=== PATIENT | male | born 1935 | race Caucasian/White ===

== ENCOUNTER 2017-09-14 12:54 | Emergency (ER) | payer OTHER ==
[~2017-09-14] VITALS: Ht 165.1 cm; Wt 57.0 kg
[~2017-09-14 12:54] MED LIST: PRIN10TA PO; UMEC1AER
[2017-09-14 13:01] VITALS: BP 133/74; PULSE 98; RESP 20; TEMP 98.6; O2SAT 94
--- NOTE | 2017-09-14 13:21 | PD ---
HPI Chief Complaint: Edema Time Seen by Provider: 13:06 Travel History International Travel<30 days: No Contact w/Intl Traveler<30days: No Traveled to known affect area: No History of Present Illness HPI PATIENT C/O BLE EDEMA WORSENING OVER THE LAST 2 WEEKS, DESPITE BEEN COMPLIANT WITH HIS LASIX. DR RAYO REQUESTED A CT RUNOFF? POSSIBLE AT [facility]. PATIENT STATED IT WAS DONE BECAUSE HE WAS HAVING PERSISTENT PAIN AND ALSO SORES TO RLE/FOOT AREA. PAIN 03/26, NONRAD, [place], PCP: DR KIRTI PETER VASCULAR SURGEON DR VIDYA RAYO PMHX: HTN, PAD (RECENTLY DIAGNOSED ABOUT A MONTH AGO...RIGHT FLOW WORSE THAN LEFT)...COPD PFSH Past Medical History Arthritis: Yes (left knee) Asthma: No Autoimmune Disease: No Blood Disorders: No Anxiety: No Depression: No Heart Rhythm Problems: No Cancer: No Cardiovascular Problems: No High Cholesterol: No Chemotherapy: No Chest Pain: No Congestive Heart Failure: No COPD: Yes (own nebulizers at home prn) Cerebrovascular Accident: No Diabetes: No Diminished Hearing: No Gastrointestinal Disorders: No GERD: No Glaucoma: No Headaches: No Hepatitis: No Hiatal Hernia: No Hypertension: Yes Kidney Stones: No Musculoskeletal: No Neurologic: No Psychiatric: No Reproductive: No Respiratory: Yes Myocardial Infarction: No Radiation Therapy: No Renal Failure: No Seizures: No Sickle Cell Disease: No Sleep Apnea: No Thyroid Disease: No Ulcer: Yes (perforated ulcer 13 years ago) PNEUMOCCOCAL Vaccine (Year): 1 Past Surgical History Abdominal Surgery: Yes (gastric repair from ruptured ulcer, hernia repair) AICD: No Cardiac Surgery: No Ear Surgery: No Endocrine Surgery: No Eye Surgery: No Genitourinary Surgery: No Gynecologic Surgery: No Neurologic Surgery: No Oral Surgery: No Pacemaker: No Thoracic Surgery: No Other Surgery: Yes Social History Alcohol Use: No Tobacco Use: No Substance Use: No Allergies-Medications (Allergen,Severity, Reaction): Coded Allergies: morphine (Verified Allergy, Unknown, 09/14/17) cat dander (Unverified Adverse Reaction, Intermediate, Itching, 09/14/17) Reported Meds & Prescriptions Reported Meds & Active Scripts Active Reported Anoro Ellipta Inh (Umeclidinium/Vilanterol) 62.5-25 Mcg/Act Aero 1 Puff INH DAILY Furosemide 20 Mg Tab 20 Mg PO BID Lisinopril 5 Mg Tab 5 Mg PO DAILY Review of Systems Except as stated in HPI: all other systems reviewed are Neg General / Constitutional: No: Fever Eyes: No: Visual changes HENT: No: Headaches Cardiovascular: Positive: Edema Respiratory: No: Shortness of Breath Gastrointestinal: No: Abdominal Pain Genitourinary: No: Dysuria Musculoskeletal: No: Pain Skin: No Rash Neurologic: No: Weakness Psychiatric: No: Depression Endocrine: No: Polydipsia Hematologic/Lymphatic: No: Easy Bruising Physical Exam Narrative GENERAL: SKIN: Warm and dry. HEAD: Atraumatic. Normocephalic. EYES: Pupils equal and round. No scleral icterus. No injection or drainage. ENT: No nasal bleeding or discharge. Mucous membranes pink and moist. NECK: Trachea midline. No JVD. CARDIOVASCULAR: Regular rate and rhythm. RESPIRATORY: No accessory muscle use. Clear to auscultation. Breath sounds equal bilaterally. GASTROINTESTINAL: Abdomen soft, non-tender, nondistended. MUSCULOSKELETAL: Extremities without clubbing, cyanosis, NO OBVIOUS DEFORMITY. BLE EDEMA, NONPALPABLE DPI, BUT DOPPLERABLE MONOPHASIC ON RT, LEFT TRIPHASIC NEUROLOGICAL: Awake and alert. No obvious cranial nerve deficits. Motor grossly within normal limits. Five out of 5 muscle strength in the arms and legs. Normal speech. PSYCHIATRIC: Appropriate mood and affect; insight and judgment normal. Data Data Last Documented VS Vital Signs Date Time Temp Pulse Resp B/P (MAP) Pulse Ox O2 Delivery O2 Flow Rate FiO2 09/14/17 13:36 16 97 Room Air 09/14/17 13:01 98.6 98 133/74 (93) Orders Orders Complete Blood Count With Diff (09/14/17 13:21) Comprehensive Metabolic Panel (09/14/17 13:21) Troponin I (09/14/17 13:21) B-Type Natriuretic Peptide (09/14/17 13:21) Prothrombin Time / Inr (Pt) (09/14/17 13:21) Act Partial Throm Time (Ptt) (09/14/17 13:21) Chest, Single Ap (09/14/17 13:21) Iv Access Insert/Monitor (09/14/17 13:21) Ecg Monitoring (09/14/17 13:21) Oximetry (09/14/17 13:21) Us Leg Venous Doppler Bilat (09/14/17 13:21) Morphine Inj (Morphine Inj) (09/14/17 14:00) Tramadol (Ultram) (09/14/17 14:30) Labs Laboratory Tests Test 09/14/17 13:45 White Blood Count 6.3 TH/MM3 Red Blood Count 3.43 MIL/MM3 Hemoglobin 10.9 GM/DL Hematocrit 33.6 % Mean Corpuscular Volume 98.0 FL Mean Corpuscular Hemoglobin 31.9 PG Mean Corpuscular Hemoglobin Concent 32.5 % Red Cell Distribution Width 13.6 % Platelet Count 160 TH/MM3 Mean Platelet Volume 9.0 FL Neutrophils (%) (Auto) 73.6 % Lymphocytes (%) (Auto) 11.9 % Monocytes (%) (Auto) 11.2 % Eosinophils (%) (Auto) 3.0 % Basophils (%) (Auto) 0.3 % Neutrophils # (Auto) 4.7 TH/MM3 Lymphocytes # (Auto) 0.7 TH/MM3 Monocytes # (Auto) 0.7 TH/MM3 Eosinophils # (Auto) 0.2 TH/MM3 Basophils # (Auto) 0.0 TH/MM3 CBC Comment DIFF FINAL Differential Comment Prothrombin Time 11.1 SEC Prothromb Time International Ratio 1.0 RATIO Activated Partial Thromboplast Time 28.5 SEC Blood Urea Nitrogen 20 MG/DL Creatinine 1.00 MG/DL Random Glucose 101 MG/DL Total Protein 6.6 GM/DL Albumin 3.3 GM/DL Calcium Level 8.3 MG/DL Alkaline Phosphatase 75 U/L Aspartate Amino Transf (AST/SGOT) 27 U/L Alanine Aminotransferase (ALT/SGPT) 29 U/L Total Bilirubin 0.5 MG/DL Sodium Level 139 MEQ/L Potassium Level 3.9 MEQ/L Chloride Level 102 MEQ/L Carbon Dioxide Level 31.0 MEQ/L Anion Gap 6 MEQ/L Estimat Glomerular Filtration Rate 72 ML/MIN Troponin I LESS THAN 0.02 NG/ML B-Type Natriuretic Peptide 17 PG/ML [facility] Medical Decision Making Medical Screen Exam Complete: Yes Emergency Medical Condition: Yes Medical Record Reviewed: Yes Differential Diagnosis PERIPHERAL EDEMA V CHF V KIDNEY FAILURE V DVT V PAD Narrative Course PER [employer], HAD LASHANDA AND ARTERIAL STUDIES ON AUG 15 C/W PAD...ALSO ULTRS R/O DVT DONE THAT SAME DAY NEG, REPEAT ULTRS TODAY ALSO NEG FOR DVT. Diagnosis Primary Impression: Bilateral lower extremity edema Patient Instructions: General Instructions, Leg Edema (ED) Additional Instructions: PLEASE KEEP YOUR APPOINTMENT WITH DR RAYO FOR FURTHER CARE OF YOUR ARTERIAL DISEASE TO YOUR LEGS (FAILURE TO DO SO MAY LEAD TO POSSIBLE AMPUTATION) TODAY YOU WERE NOT FOUND TO HAVE ANY BLOOD CLOTS IN YOUR VEIN. YOU WERE GIVEN A ONE TIME DIURETIC IN EMERGENCY TO HELP DECREASE SOME OF THE SWELLING. Disposition: 01 DISCHARGE HOME Condition: Stable Reuben Carreno MD Sep 14, 2017 13:21
[2017-09-14] MEDS ORDERED: UMEC1AER INH (13:34)
[2017-09-14] MEDS ORDERED: LISI-519 PO (13:34)
[2017-09-14] MEDS ORDERED: FURO20TA PO (13:34)
[2017-09-14 13:36] VITALS: RESP 16; O2SAT 97
[2017-09-14 13:57] LABS: AUTOMATED NEUTROPHIL # 4.7 TH/MM3 (1.8-7.7); BASOPHIL % 0.3 % (0.0-2.0); EOSINOPHIL # 0.2 TH/MM3 (0-0.4); HEMATOCRIT 33.6 % (39.0-51.0); LYMPH % 11.9 % (9.0-44.0); LYMPHOCYTE # 0.7 TH/MM3 (1.0-4.8); MEAN CORPUSCULAR HEMOGLOBIN 31.9 PG (27.0-34.0); MEAN CORPUSCULAR HGB CONC 32.5 % (32.0-36.0); MONO % 11.2 % (0.0-8.0); NEUT % 73.6 % (16.0-70.0); PLATELET COUNT 160 TH/MM3 (150-450); RED BLOOD COUNT 3.43 MIL/MM3 (4.50-5.90); RED CELL DISTRIBUTION WIDTH 13.6 % (11.6-17.2); WHITE BLOOD COUNT 6.3 TH/MM3 (4.0-11.0)
--- NOTE | 2017-09-14 13:57 | RADRPT ---
EXAM DATE/TIME: 09/14/2017 13:26 [facility] COMPARISON: CHEST SINGLE AP, April 10, 2015, 13:51. INDICATIONS : Evaluate for pulmonary edema, swelling in both legs over the last 2 weeks. MEDICAL HISTORY : Hypertension. Chronic obstructive pulmonary disease. Peripheral artery disease. SURGICAL HISTORY : None. ENCOUNTER: Initial ACUITY: 2 weeks PAIN SCORE: 0/10 LOCATION: Bilateral chest FINDINGS: A single view of the chest demonstrates the lungs to be symmetrically hyperinflated with some interst itial prominence in the apices suggesting scarring or fibrosis. No confluent infiltrate or effusion. Heart size is normal. Osseous structures are intact. CONCLUSION: 1. Hyperinflation characteristic of COPD with biapical scarring/fibrosis, right worse than left. 2. No confluent infiltrate Alvin Anton MD on September 14, 2017 at 13:53 Board Certified Radiologist. This report was verified electronically.
[2017-09-14] MEDS ORDERED: MORPHINE SULFATE 4 MG/ML INJ IV PUSH ONE (14:00)
[2017-09-14 14:01] LABS: HEMO FLAGS DIFF FINAL
[2017-09-14 14:06] LABS: CHLORIDE 102 MEQ/L (98-107); POTASSIUM 3.9 MEQ/L (3.5-5.1); SODIUM (NA) 139 MEQ/L (136-145)
[2017-09-14 14:10] LABS: ANION GAP 6 MEQ/L (5-15); APTT (PATIENT) 28.5 SEC (24.3-30.1); BLOOD UREA NITROGEN 20 MG/DL (7-18); PROTHROMBIN TIME - PATIENT 11.1 SEC (9.8-11.6)
[2017-09-14 14:13] LABS: ALT (GPT) 29 U/L (12-78); AST (GOT) 27 U/L (15-37); GLOMERULAR FILTRATION RATE 72 ML/MIN (>89)
[2017-09-14 14:14] LABS: TOTAL BILIRUBIN ADULT 0.5 MG/DL (0.2-1.0)
[2017-09-14 14:16] LABS: ALKALINE PHOSPHATASE 75 U/L (45-117)
[2017-09-14] MEDS ORDERED: traMADol HCL 50 MG TAB PO ONE (14:30)
--- NOTE | 2017-09-14 15:12 | RADRPT ---
EXAM DATE/TIME: 09/14/2017 14:36 [facility] COMPARISON: No previous studies available for comparison. EXTERNAL COMPARISON : [facility], US LEG, BILATERAL VENOUS DOPPLER August 15, 2017., August 15, 2017 INDICATIONS : Bilateral leg pain and swelling. MEDICAL HISTORY : Chronic obstructive pulmonary disease. Hypertension. Ulcer. Arthritis. SURGICAL HISTORY : Gastric repair of ruptured ulcer. Hernia repair. Left knee arthroscopy. ENCOUNTER: Subsequent ACUITY: 1 month PAIN SCORE: 9/10 LOCATION: Bilateral legs. TECHNIQUE: Venous ultrasound of the left and right leg was performed from the inguinal ligament to the proximal calf. Real-time, color Doppler and spectral tracing, compression and augmentation techniques were us ed. FINDINGS: RIGHT LEG: There is normal compressibility of the deep venous system from the inguinal region to the proximal ca lf. No echogenic clot is seen in the lumen of the common femoral, femoral, popliteal, and posterior tibial veins. There is a normal response of the venous system to proximal and distal augmentation an d respiration. LEFT LEG: There is normal compressibility of the deep venous system from the inguinal region to the proximal ca lf. No echogenic clot is seen in the lumen of the common femoral, femoral, popliteal, and posterior tibial veins. There is a normal response of the venous system to proximal and distal augmentation an d respiration. CONCLUSION: Negative for deep venous thrombosis. Extensive arterial calcifications and general ized edema. John Hull MD FACR on September 14, 2017 at 15:10 Board Certified Radiologist. This report was verified electronically.
[2017-09-14 15:20] VITALS: BP 150/72; PULSE 93; RESP 16; O2SAT 96
[2017-09-14] MEDS ORDERED: FUROSEMIDE 100 MG/10 ML VIAL IV PUSH ONE (16:00)
[2017-09-14] MEDS ORDERED: PERC10TA27 PO (16:20)
== END 2017-09-14 16:40 | disposition home or self-care (01) ==
LOC: PHED 12:54
DX: R60.0 Localized edema (principal); I10 Essential (primary) hypertension; M79.604 Pain in right leg; M79.605 Pain in left leg
CPT/HCPCS: 71010; 80053; 83880; 84484; 85025; 85610; 85730; 93970; 96374; 99285; J1940